=== PATIENT | female | born 2000 | race African-American/Black ===

== ENCOUNTER 2025-05-21 03:31 | Emergency (ER) | payer MEDICAID ==
[~2025-05-21] VITALS: Ht 170.2 cm; Wt 72.0 kg
[2025-05-21 03:33] VITALS: BP 113/67; PULSE 99; RESP 18; TEMP 98; O2SAT 99
== END 2025-05-21 04:17 | disposition left against medical advice (07) ==
LOC: ER 03:31
DX: F10.129 Alcohol abuse with intoxication, unspecified (principal); Y90.9 Presence of alcohol in blood, level not specified
CPT/HCPCS: 99281